=== PATIENT | male | born 1980 | race Caucasian/White ===

== ENCOUNTER 2020-12-05 22:49 | Emergency (ER) | payer OTHER, SELFPAY ==
[2020-12-05 22:52] VITALS: BP 138/71; PULSE 80; RESP 16; TEMP 36.1; O2SAT 99; BMI 30.1
[2020-12-05 22:53] VITALS: BP 138/71; PULSE 80; RESP 16; TEMP 36.1; O2SAT 99
--- NOTE | 2020-12-06 00:06 | ED.VIS.GEN ---
History of Present Illness Chief Complaint: Bite Informant: Patient Narrative: Patient is a 40-year-old male with no significant past medical history presenting with concern for Lyme disease exposure or tick bite. Patient states he went mushroom hunting on Saturday, 4 days ago and somehow ticks got underneath his shirt. He found approximately 9 ticks on him. At least 4 were attached. He thought he remove them. Following day he found a tick attached in his bellybutton. He removed at least the body. He states he was on for at least 24 hours. Tonight patient thought he saw a piece of the head still on him and so he came in to be evaluated further. He denies any other complaints. Past Medical History - Allergies and Home Meds Allergies/Adverse Reactions: Allergies bee venom protein (honey bee) Allergy (Verified 12/05/20 22:50) Hives Primary Care Physician: Derrell Patel MD [Primary Care Provider] - Past Medical History: None Surgical History: noncontributory Smoking Status: Former smoker Review of Systems General: Denies: Chills, Fever, Sweats Eyes: Denies: Visual changes - bilaterally, Diplopia ENT: Denies: Rhinorrhea, Sore throat Cardiovascular: Denies: Chest pain, Palpitations Respiratory: Denies: Dyspnea, Cough Gastrointestinal: Denies: Abdominal pain, Nausea, Vomiting Musculoskeletal: Denies: Back pain, Extremity Pain Skin: Reports: - - Tick bites. Denies: Rash, Wounds Neurological: Denies: Headache, Weakness, Numbness Physical Exam Vital Signs/Narrative: Vital Signs Temp Pulse Resp BP Pulse Ox 12/05/20 22:53 97 F L 80 16 138/71 H 99 12/05/20 22:52 97 F L 80 16 138/71 H 99 Inital Vital Signs reviewed: Yes General: Well nourished, Well developed, No Acute Distress Head: Normocephalic, Atraumatic Eyes: Perrl, EOMI ENT: Moist mucous membranes, No rhinorrhea Neck: Supple, Nontender Cardiovascular: Regular rate Respiratory: No distress Abdomen: Soft, Nontender, Nondistended, Normal bowel sounds Extremities: Nontender, No edema Skin: Normal color, No rash, - - Subcentimeter area of erythema and slight ulceration on the inferior aspect of the umbilicus. Consistent with a wound that has been picked at. Neurological: Alert, Oriented x3, Cranial nerves II-XII grossly intact Psychological: Normal affect, Normal Mood Diagnostic/Tx/Re-eval - Medical Decision Making Patient is evaluated for concern of tick bite and possible Lyme disease. Tick was watched for approximately 24 hours. Tick was removed 3 days ago. Patient be covered prophylactically with a dose of doxycycline. He is counseled signs symptoms of Lyme disease to watch out for. He will follow-up with his primary care doctor as needed. Patient is counseled on signs and symptoms requiring return to the emergency room. Patient verbalizes agreement and understand this plan. Patient discharged home in stable and improved condition. ED Disposition - Plan for ED Patient: Disposition: Home or Assisted Living Diagnosis: Tick bite Instructions: ED Tick Bite, Abx Tx Referrals: Derrell Patel MD [Primary Care Provider] -
[2020-12-06] MEDS: Doxycycline 100 MG CAPSULE 200 MG PO (00:21)
== END 2020-12-06 00:26 | disposition home or self-care (01) ==
PROVIDERS: Emergency Provider Emergency Medicine; PCP Family Medicine
DX: S30.861A Insect bite (nonvenomous) of abdominal wall, initial encounter (principal); W57.XXXA Bitten or stung by nonvenomous insect and other nonvenomous arthropods, initial encounter; Z87.891 Personal history of nicotine dependence
CPT/HCPCS: 99281; 99283